=== PATIENT | female | born 1945 | race Caucasian/White ===

== ENCOUNTER 2018-01-28 18:02 | Observation (INO) | payer MEDICARE ==
[~2018-01-28] VITALS: Ht 154.9 cm; Wt 58.6 kg
[~2018-01-28 18:02] MED LIST: ACID1TAB7 PO; ASPI-621 PO; AZIT500T5 PO; CEFD300C37 PO; GUAI-106 PO; LEVO500T47 PO; ONDA4TAB13 SL; ROSU5TAB PO; TEMA15CA6 PO; TRAM50TA2 PO
[2018-01-28] MEDS ORDERED: SODIUM CHLORIDE FLUSH 10ML SYR IVF ONE (18:30)
[2018-01-28] MEDS ORDERED: SODIUM CHLORIDE 0.9% 1,000ML IVBOLUS ONE (18:30)
[2018-01-28 18:55] LABS: ALBUMIN 4.1 g/dL (3.4-5.0); ANION GAP 12 mmol/L (5-15); CALCIUM 8.9 mg/dL (8.5-10.1); CHLORIDE 103 mmol/L (98-107); CREATININE 0.87 mg/dL (0.55-1.02)
[2018-01-28 19:01] LABS: TROPONIN I < 0.015 ng/mL (0.000-0.045)
[2018-01-28] MEDS ORDERED: ASPIRIN 81 MG TABLET CHEW ONE (19:49)
[2018-01-28 19:51] LABS: BASOPHILS % (AUTO) 0 % (0-1); EOSINOPHILS # (AUTO) 0.05 x10^3/uL (0-0.4); EOSINOPHILS % (AUTO) 1 % (1-7); LYMPHOCYTES # (AUTO) 0.44 x10^3/uL (1-3.4); LYMPHOCYTES % (AUTO) 7 % (22-44); MD NO; MEAN CORPUSCULAR HEMOGLOBIN 32.9 pg (27.0-34.8); MEAN CORPUSCULAR VOLUME 96.6 fL (80-100); MEAN PLATELET VOLUME 7.9 fL (7.4-10.4); MONOCYTES # (AUTO) 0.25 x10^3/uL (0.2-0.8); MONOCYTES % (AUTO) 4 % (2-9); NEUTROPHILS # (AUTO) 5.52 x10^3/uL (1.8-6.8); NEUTROPHILS % (AUTO) 88 % (42-75); PLATELET COUNT 211 x10^3/uL (130-400); RED BLOOD COUNT 4.19 x10^6/uL (3.82-5.3); RED CELL DISTRIBUTION WIDTH 13.6 % (9.6-15.2)
[2018-01-28] MEDS ORDERED: ASPIRIN 81 MG TABLET CHEW PO ONE (20:00)
[2018-01-28 20:38] VITALS: BP 126/77
[2018-01-28] MEDS ORDERED: ONDANSETRON ODT 4 MG PO PRN (21:00)
[2018-01-28] MEDS ORDERED: D5%-0.9% NACL 1,000 ML IV SCH (21:00)
[2018-01-28] MEDS ORDERED: POLYETHYLENE GLYCOL 17 GM PACKET PO PRN (21:00)
[2018-01-28] MEDS ORDERED: ACETAMINOPHEN 325 MG TABLET PO PRN (21:00)
[2018-01-28 23:29] LABS: TROPONIN I < 0.015 ng/mL (0.000-0.045)
[2018-01-29 02:12] VITALS: BP 122/71
[2018-01-29 05:18] LABS: TROPONIN I < 0.015 ng/mL (0.000-0.045)
[2018-01-29 06:59] VITALS: BP 100/62
== END 2018-01-29 11:48 | disposition home or self-care (01) ==
LOC: ED 19:48 → SUATTDRO 20:35 → EDIP 20:36 → UNDOADMOB 20:55 → INTOOBSV 20:55 → 5SO 21:04 → EDIP 21:04 → 5SO 01-29 11:37 → DCLOUNGE 01-29 11:37 → UNDODISOB 01-29 11:48
PROVIDERS: ADMIT Hospitalist; ATTEND Hospitalist
DX: R11.2 Nausea with vomiting, unspecified (principal); R94.31 Abnormal electrocardiogram [ECG] [EKG]; E78.5 Hyperlipidemia, unspecified; E78.00 Pure hypercholesterolemia, unspecified; Z87.01 Personal history of pneumonia (recurrent)
CPT/HCPCS: 36415; 80048; 82040; 83735; 84484; 85025; 93005; 96360; 96361; 99285; G0378; J7030; J7042

== ENCOUNTER → 2018-04-09 | Outpatient (CLI) | payer MEDICARE | END | disposition home or self-care (01) | LOC: CFH 09:32 → EDSTATUS 10:00 | PROVIDERS: ATTEND Internal Medicine Cardiovascular Disease | DX: E04.1 Nontoxic single thyroid nodule (principal); E78.2 Mixed hyperlipidemia; G45.9 Transient cerebral ischemic attack, unspecified | CPT/HCPCS: 76536 ==

== ENCOUNTER → 2019-02-15 | Outpatient (CLI) | payer MEDICARE ==
[~2019-02-15] MED LIST changes: -ASPI-621 PO; +ASPI81TA45 PO
== END | disposition home or self-care (01) ==
LOC: CVU 11:49
PROVIDERS: ATTEND Internal Medicine Cardiovascular Disease
DX: I65.23 Occlusion and stenosis of bilateral carotid arteries (principal); H53.8 Other visual disturbances
CPT/HCPCS: 93880